=== PATIENT | male | born 1965 ===

== ENCOUNTER 2024-03-06 03:58 | Day surgery (SDC) | payer OTHER, BC ==
[2024-03-04 16:41] VITALS: BMI 21.8
[2024-03-06] MEDS ORDERED: ELECTROLYTE-148 SOLN 1,000 ML IV SCH (09:30)
[2024-03-06] MEDS ORDERED: MIDAZOLAM HCL 2 MG/2 ML SINGLE DOSE VIAL ONE ×2 (09:55→10:17)
[2024-03-06] MEDS: ceFAZolin SODIUM 1 GM VIAL IVPB ONE ×2 (09:57)
[2024-03-06] MEDS ORDERED: KETOROLAC TROMETHAMINE 30 MG/1 ML VIAL ONE (10:23)
[2024-03-06] MEDS ORDERED: ONDANSETRON 4 MG/2 ML VIAL ONE (10:23)
[2024-03-06] MEDS ORDERED: DEXAMETHASONE SOD PHOSPHATE 4 MG/1 ML VIAL ONE (10:23)
[2024-03-06] MEDS ORDERED: ceFAZolin SODIUM 1 GM VIAL ONE (10:34)
[2024-03-06 12:38] VITALS: BP 144/67; PULSE 74; RESP 18; TEMP 98
== END 2024-03-06 11:50 | disposition home or self-care (01) ==
LOC: JASU-SURG 03:58
PROVIDERS: ATTEND Urology
PROC: 0TF7XZZ Fragmentation in Left Ureter, External Approach (ICD-10-PCS; principal; 2024-03-06 09:15)
DX: N13.2 Hydronephrosis with renal and ureteral calculous obstruction (principal)